=== PATIENT | male | born 1970 | race Native Hawaiian/Other Pacific Islander ===

== ENCOUNTER 2017-12-05 12:11 | Outpatient (CLI) | payer OTHER ==
--- NOTE | 2017-12-05 19:43 | XRay Report ---
FINAL REPORT EXAM: XR SHOULDER 2+V RT HISTORY: RIGHT SHOULDER PAIN TECHNIQUE: 4 views of right shoulder. PRIORS: None. FINDINGS: No apparent fracture or dislocation. Joint spaces maintained. Soft tissues grossly unremarkable. Probable small, calcified granuloma projects in right lung apex. IMPRESSION: 1. No acute osseous abnormality.
== END 2017-12-05 12:12 | disposition home or self-care (01) ==
LOC: SPVIMAG 12:11
PROVIDERS: ATTEND Orthopaedic Surgery
DX: M25.511 Pain in right shoulder (principal)

== ENCOUNTER 2017-12-07 10:32 | Outpatient (CLI) | payer OTHER ==
--- NOTE | 2017-12-07 16:44 | XRay Report ---
XRAY BILATERAL KNEE THREE VIEWS EACH: 12/07/17 10:32:00 CLINICAL: Bilateral knee pain. FINDINGS: Right: Mild medial joint space narrowing. The lateral joint space is normal. Small patellofemoral osteophytes. No fracture or dislocation. No joint effusion. Normal soft tissues. Left: Mild medial joint space narrowing. Slight widening of the lateral joint space with small lateral osteophytes. Small patellofemoral osteophytes. No fracture or dislocation. Normal soft tissues. IMPRESSION: Mild osteoarthritis.
== END 2017-12-07 10:33 | disposition home or self-care (01) ==
LOC: SPVIMAG 10:32
PROVIDERS: ATTEND Orthopaedic Surgery
DX: M17.0 Bilateral primary osteoarthritis of knee (principal)

== ENCOUNTER 2017-12-19 15:18 | Outpatient (CLI) | payer OTHER ==
--- NOTE | 2017-12-19 16:34 | XRay Report ---
LEFT SHOULDER: Pain Routine views demonstrate normal bony and soft tissue structures with normal joint alignment of the shoulder. IMPRESSION: Normal study.
== END 2017-12-19 15:19 | disposition home or self-care (01) ==
LOC: SPVIMAG 15:18
PROVIDERS: ATTEND Orthopaedic Surgery
DX: M25.512 Pain in left shoulder (principal)

== ENCOUNTER 2020-04-14 11:55 | Outpatient (CLI) | payer OTHER ==
--- NOTE | 2020-04-14 12:44 | XRay Report ---
LEFT KNEE 2 VIEWS INDICATION / CLINICAL INFORMATION: R22.42Localized swelling, mass and lump, left lower limb COMPARISON: Bilateral knees 12/07/2017 FINDINGS: BONES and JOINT(S): No acute fracture or subluxation. Stable mild tricompartmental osteoarthritis. SOFT TISSUES: No significant abnormality. ADDITIONAL FINDINGS: None. IMPRESSION: 1. No acute findings. 2. Stable mild osteoarthritis. Signer Name: Jay Boo MD Signed: 04/14/2020 12:40 PM Workstation Name: [id number]
== END 2020-04-14 11:56 | disposition home or self-care (01) ==
LOC: XRAY 11:55
PROVIDERS: ATTEND Internal Medicine
DX: M17.12 Unilateral primary osteoarthritis, left knee (principal); R22.42 Localized swelling, mass and lump, left lower limb